=== PATIENT | female | born 2000 | race Caucasian/White ===

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

== ENCOUNTER 2020-04-22 18:43 | Emergency (ER) | payer BC ==
[~2020-04-22] VITALS: Ht 167.6 cm; Wt 104.5 kg
[2020-04-22] MEDS ORDERED: KETOROLAC 30 MG/ML 1ML VIAL IV ONE (20:30)
[2020-04-22] MEDS ORDERED: NS 1,000 ML IV ONE (20:30)
[2020-04-22 21:18] LABS: BASO % 0.3 % (0.0-1.0); EOS # 0.1 10^3/uL (0.0-0.5); EOS % 1.3 % (0.0-3.0); HEMATOCRIT 43.3 % (36.0-47.0); HEMOGLOBIN 14.3 g/dl (12.0-15.5); LYMPH # 2.6 10^3/uL (1.5-5.0); MEAN CORPUSCULAR HEMOGLOBIN 28.5 pg (27.0-33.0); MEAN CORPUSCULAR VOLUME 86.3 fl (80.0-96.0); MONO # 0.7 10^3/uL (0.0-0.8); MONO % 8.7 % (0.0-5.0); NEUTROPHILS # 4.1 10^3/uL (1.5-8.5); NEUTROPHILS % 54.6 % (36.0-66.0); PLATELET COUNT, AUTOMATED 299 10^3/uL (150-450); RED BLOOD COUNT 5.02 10^6/uL (4.00-5.40); WHITE BLOOD COUNT 7.5 10^3/uL (4.0-10.0)
[2020-04-22 21:29] LABS: INR 0.92; PARTIAL THROMBOPLASTIN TIME 24.8 SECONDS (25.0-38.4); PROTHROMBIN TIME 12.5 SECONDS (11.8-14.0)
--- NOTE | 2020-04-22 21:41 | REPVR ---
PROCEDURE INFORMATION: Exam: US Duplex Lower Extremity Veins, Bilateral Exam date and time: 04/22/2020 9:25 PM Age: 19 years old Clinical indication: Swelling (edema) of limb; Lower extremity, bilateral; Additional info: Leg welling, calf pain TECHNIQUE: Imaging protocol: Real-time duplex ultrasound of the extremities with 2-D duran scale, color Doppler flow and spectral waveform analysis with image documentation. Complete exam focused on the bilateral lower extremity veins. COMPARISON: No relevant prior studies available. FINDINGS: Right deep veins: Unremarkable. The common femoral, femoral and popliteal veins are patent without thrombus. Normal Doppler waveforms. Normal compressibility and/or augmentation response. Right superficial veins: Saphenofemoral junction is patent without thrombus. Left deep veins: Unremarkable. The common femoral, femoral and popliteal veins are patent without thrombus. Normal Doppler waveforms. Normal compressibility and/or augmentation response. Left superficial veins: Saphenofemoral junction is patent without thrombus. Soft tissues: Unremarkable. IMPRESSION: No sonographic evidence of deep vein thrombosis. Electronically signed by: Fareed Christie On 04/22/2020 21:40:58 PM
[2020-04-22 21:47] LABS: ALBUMIN 3.2 GM/DL (3.2-5.2); ALT/SGPT 15 U/L (12-78); BILIRUBIN,DIRECT < 0.1 MG/DL (0.0-0.2); BILIRUBIN,TOTAL 0.2 MG/DL (0.2-1.0); BLOOD UREA NITROGEN 8 MG/DL (7-18); C REACTIVE PROTEIN QUANTITATIV 5.01 MG/DL (0.00-0.30); CARBON DIOXIDE LEVEL 25 MEQ/L (21-32); CHLORIDE LEVEL 109 MEQ/L (98-107); CREATININE FOR GFR 0.85 MG/DL (0.55-1.30); GLUCOSE, FASTING 89 MG/DL (70-100); POTASSIUM SERUM 3.9 MEQ/L (3.5-5.1); SODIUM LEVEL 141 MEQ/L (136-145); TOTAL PROTEIN 7.7 GM/DL (6.4-8.2)
[2020-04-22 22:03] LABS: HCG, SERUM QUALITATIVE NEGATIVE (NEGATIVE)
[2020-04-22 22:10] LABS: ERYTHROCYTE SEDIMENTATION RATE 16 mm/hr (0-20)
[2020-04-22 22:46] VITALS: BP 133/69
== END 2020-04-22 23:12 | disposition home or self-care (01) ==
LOC: M ED 18:43
DX: R22.43 Localized swelling, mass and lump, lower limb, bilateral (principal)
CPT/HCPCS: 80048; 80076; 84703; 85025; 85610; 85652; 85730; 86140; 93970; 96361; 96374; 99284; J1885

== ENCOUNTER → 2020-11-14 | Outpatient (REF) | payer BC | LOC: M SFHCWAGY 13:41 | PROVIDERS: ATTEND Nurse Practitioner Women's Health | DX: Z11.3 Encounter for screening for infections with a predominantly sexual mode of transmission (principal) ==

== ENCOUNTER → 2022-10-09 | Outpatient (CLI) | payer BC | LOC: M LABSMTC 10:11 | PROVIDERS: ATTEND Anesthesiology | DX: Z01.812 Encounter for preprocedural laboratory examination (principal); Z20.822 Contact with and (suspected) exposure to COVID-19 ==

== ENCOUNTER 2022-10-14 08:46 | Day surgery (SDC) | payer BC ==
[~2022-10-14] VITALS: Ht 170.2 cm; Wt 104.3 kg
[~2022-10-14 08:46] MED LIST: BUPIVACAINE/EPIN 0.5% 30ML VIAL As Ordered ONE
[2022-10-14] MEDS ORDERED: LR 1,000 ML IV SCH ×2 (10:40→13:35)
[2022-10-14] MEDS ORDERED: fentaNYL 100 MCG/2 ML INJECTION As Ordered ONE (11:41)
[2022-10-14] MEDS ORDERED: propofoL 200 MG/20 ML VIAL As Ordered ONE (11:41)
[2022-10-14] MEDS ORDERED: MIDAZOLAM INJ 2MG/2ML VIAL As Ordered ONE (11:41)
[2022-10-14] MEDS ORDERED: LIDOCAINE 2% 100MG/5ML SDV (FOR ANES.) As Ordered ONE (11:42)
[2022-10-14] MEDS ORDERED: ACETAMINOPHEN 1000MG 100ML IV BAG As Ordered ONE (12:15)
[2022-10-14] MEDS ORDERED: fentaNYL 100 MCG/2 ML INJECTION IV PRN (13:20)
[2022-10-14] MEDS ORDERED: MEPERIDINE 25 MG/ML 1ML VIAL IV PRN (13:20)
[2022-10-14] MEDS ORDERED: ONDANSETRON 4MG 2ML VIAL IV PRN ×2 (13:20→13:35)
[2022-10-14] MEDS ORDERED: oxyCODONE 5MG TAB PO PRN (13:20)
[2022-10-14] MEDS ORDERED: HYDROcodone/APAP LIQUID 7.5-325MG 15ML UDC (LORTAB ELIXIR) PO PRN (13:35)
[2022-10-14 14:30] VITALS: BP 122/80
== END 2022-10-14 14:40 | disposition home or self-care (01) ==
LOC: M SDC 08:46
PROVIDERS: ATTEND Otolaryngology
DX: J35.3 Hypertrophy of tonsils with hypertrophy of adenoids (principal); F17.290 Nicotine dependence, other tobacco product, uncomplicated
CPT/HCPCS: 42821; 81025; 88302; J0131; J1100; J2250; J3010; S0020

== ENCOUNTER → 2025-05-07 | Outpatient (CLI) | payer OTHER ==
[2025-05-07 16:04] LABS: ALT/SGPT 18 U/L (7.0-40); AST/SGOT 17 U/L (<34); CALCIUM LEVEL 9.6 MG/DL (8.5-10.1); CARBON DIOXIDE LEVEL 27 MMOL/L (20-31); CHLORIDE LEVEL 106 MMOL/L (98-107); CREATININE FOR GFR 0.85 MG/DL (0.55-1.30); GLOMERULAR FILTRATION RATE > 90.0 (>60); POTASSIUM SERUM 4.2 MMOL/L (3.5-5.1); SODIUM LEVEL 136 MMOL/L (136-145)
[2025-05-07 16:05] LABS: LUTEINIZING HORMONE 8.3 mIU/ML
[2025-05-07 16:06] LABS: FREE T4 1.09 NG/DL (0.89-1.76); PROLACTIN 8.20 NG/ML
[2025-05-07 16:10] LABS: BASO # 0.0 10^3/uL (0.0-0.2); BASO % 0.6 % (0.0-1.0); EOS # 0.1 10^3/uL (0.0-0.5); EOS % 1.6 % (0.0-3.0); LYMPH # 2.8 10^3/uL (1.5-5.0); LYMPH % 40.3 % (24.0-44.0); MONO # 0.7 10^3/uL (0.0-0.8); MONO % 10.6 % (2.0-8.0); NEUTROPHILS # 3.3 10^3/uL (1.5-8.5); NEUTROPHILS % 46.8 % (36.0-66.0); PLATELET COUNT, AUTOMATED 318 10^3/uL (150-450)
[2025-05-07 16:15] LABS: HCG, SERUM QUALITATIVE NEGATIVE (NEGATIVE)
[2025-05-07 17:05] LABS: ESTRADIOL 88.5 PG/ML
== END ==
LOC: M PLALAB 12:22
PROVIDERS: ATTEND Nurse Practitioner Family
DX: N91.1 Secondary amenorrhea (principal)